=== PATIENT | female | born 1970 | race Caucasian/White ===

== ENCOUNTER 2019-11-07 09:57 | Day surgery (SDC) | payer MEDICAID ==
[~2019-11-07] VITALS: Ht 157.5 cm; Wt 94.1 kg
[2019-11-07] MEDS ORDERED: LIDOCAINE/PF 2% 5 ML SYRINGE IVP ONE (09:58)
[2019-11-07] MEDS ORDERED: PROPOFOL 1% 20 ML VIAL IVP ONE (09:58)
[2019-11-07] MEDS ORDERED: SODIUM CHLORIDE 0.9% 1,000 ML IV ONE (10:30)
[2019-11-07] MEDS ORDERED: LISI-622 PO (10:36)
[2019-11-07] MEDS ORDERED: TRAZ-257 PO (10:36)
[2019-11-07] MEDS ORDERED: HYDR25TA82 PO (10:36)
[2019-11-07] MEDS ORDERED: CHOL200026 PO (10:36)
[2019-11-07] MEDS ORDERED: GABA-1181 PO (10:36)
[2019-11-07] MEDS ORDERED: ASCO-515 PO (10:36)
[2019-11-07] MEDS ORDERED: CYAN-53 PO (10:36)
[2019-11-07] MEDS ORDERED: ATOR10TA69 PO (10:36)
[2019-11-07] MEDS ORDERED: TADA20TA31 PO (10:36)
== END 2019-11-07 12:50 | disposition home or self-care (01) ==
LOC: SURGERY 09:57
PROVIDERS: ATTEND Student in an Organized Health Care Education/Training Program
DX: Z12.11 Encounter for screening for malignant neoplasm of colon (principal); K64.8 Other hemorrhoids; K44.9 Diaphragmatic hernia without obstruction or gangrene; K21.0 Gastro-esophageal reflux disease with esophagitis; K29.50 Unspecified chronic gastritis without bleeding; I11.0 Hypertensive heart disease with heart failure; I50.9 Heart failure, unspecified; E11.9 Type 2 diabetes mellitus without complications; Z82.49 Family history of ischemic heart disease and other diseases of the circulatory system; Z98.84 Bariatric surgery status
CPT/HCPCS: 45378; 43239; 84703; 87426; 88305; 88312; 88313; C1769; J2704; J3490